=== PATIENT | female | born 1955 | race Caucasian/White ===

== ENCOUNTER → 2017-11-15 | Day surgery (SDC) | payer OTHER ==
[~2017-11-15] MED LIST: ATROPINE SULFATE 1% OPHT SOLN 2 ML BTL; DEXAMETHASONE SOD PHOS 4 MG/ML VIAL; EPINEPHrine HCL (1:1000) 1 MG/ML VIAL; FLURBIPROFEN 0.03% OPHT SOLN 2.5 ML BTL; HYALURONIDASE/LIDOCAINE/BUPIVACAINE 5 ML SYR; MIDAZOLAM HCL 2 MG/2 ML VIAL; NEOMYCIN/POLYMYXIN/DEXAMETHASONE OPTH OINT 3.5 GM TUBE; ONDANSETRON HCL 4 MG/2 ML VIAL IV PUSH; PHENYLEPHRINE HCL 2.5 % OPTH SOLN 15 ML BTL; PROPOFOL 200 MG/20 ML AMP IV; SODIUM CHLORIDE 0.9% INJ 10 ML; TETRACAINE 0.5% OPTH SOLN 4 ML BTL; TRIAMCINOLONE ACETONIDE 40 MG/ML VIAL; TROPICAMIDE 1% OPHT SOLN 15 ML BTL; ceFAZolin INJ 1,000 MG VIAL
== END | disposition home or self-care (01) ==
LOC: ESDC 11:56
DX: E11.3591 Type 2 diabetes mellitus with proliferative diabetic retinopathy without macular edema, right eye (principal); H43.11 Vitreous hemorrhage, right eye; Z79.4 Long term (current) use of insulin
CPT/HCPCS: 00145; 82948